=== PATIENT | female | born 1945 | race Caucasian/White ===

== ENCOUNTER → 2016-09-07 | Outpatient (CLI) | payer OTHER ==
--- NOTE | 2016-09-07 14:46 | MAMMOGRAPHY REPORT ---
BILATERAL DIGITAL DIAGNOSTIC MAMMOGRAM TOMOSYNTHESIS WITH CAD: 09/07/2016 CLINICAL HISTORY: 1 year diagnostic follow-up of clustered microcalcifications in the right upper ou ter quadrant. Annual bilateral screening exam. TECHNIQUE: Bilateral CC and MLO 2-D digital and tomosynthesis images, spot magnification right CC a nd ML views were obtained. Current study was also evaluated with a Computer Aided Detection (CAD) s ystem. COMPARISON: Comparison is made to exams dated: 03/09/2016 mammogram, 08/07/2015 mammogram, 07/29/2015 mammogram, 07/17/2014 mammogram, 05/25/2013 mammogram, and 05/24/2012 mammogram - [facility]. BREAST COMPOSITION: There are scattered areas of fibroglandular density in both breasts. FINDINGS: There is a stable small, 3 mm cluster of punctate and amorphous microcalcifications in th e upper outer middle to posterior right breast, that appears similar based on the spot magnification views dating back to 08/07/2015. A few other round and punctate microcalcifications are seen more medially in the posterior aspect of the right breast on the spot magnification CC view. There are a lso benign coarse calcifications. No new suspicious mass, architectural distortion or cluster of nazanin rocalcifications is seen bilaterally. IMPRESSION: ACR-BI-RADS CATEGORY 3: PROBABLY BENIGN The small cluster of punctate and amorphous microcalcifications in the right upper outer quadrant ap pears stable for one year based on spot magnification views. Longer stability is needed and another 12 month follow-up diagnostic mammogram including spot magnification views is recommended. Annual bilateral mammography will also be due at that time. These results and recommendations were discussed with the patient at the time of the exam. Approximately 10% of breast cancers are not detected with mammography. A negative mammographic repor t should not delay biopsy if a clinically suggestive mass is present. Velma Houser M.D. ay/:09/07/2016 12:21:44 Front Elevator Operator: Bharti LOUIS)(M), [facility] letter sent: Follow Up Recommended 3 BI-RADS Code: ACR-BI-RADS Category 3: Probably Benign
== END | disposition home or self-care (01) ==
LOC: C.MAMM 08:46
PROVIDERS: ATTEND Physician Assistant
DX: R92.0 Mammographic microcalcification found on diagnostic imaging of breast (principal)

== ENCOUNTER → 2017-09-08 | Outpatient (CLI) | payer OTHER ==
--- NOTE | 2017-09-08 15:25 | MAMMOGRAPHY REPORT ---
BILATERAL DIGITAL DIAGNOSTIC MAMMOGRAM TOMOSYNTHESIS WITH CAD: 09/08/2017 CLINICAL HISTORY: 12 month follow-up of right breast calcifications. Due for routine mammography of the left breast. The patient reports no palpable lumps or other new complaints. TECHNIQUE: Breast tomosynthesis in addition to standard 2D mammography was performed. Current study was also evaluated with a Computer Aided Detection (CAD) system. Bilateral CC and MLO 2D and tomosyn thesis images and spot magnification right cc and ML views were obtained. COMPARISON: Comparison is made to exams dated: 09/07/2016 mammogram, 03/09/2016 mammogram, 08/07/2015 mammogram, 07/29/2015 mammogram, 07/17/2014 mammogram, and 05/25/2013 mammogram - [facility]. BREAST COMPOSITION: There are scattered areas of fibroglandular density in both breasts. FINDINGS: Again noted is a small 3 mm cluster of punctate benign-appearing calcifications in the righ t upper outer quadrant. The calcifications are stable on spot magnification views dating back to at least July 2015, and are considered benign given the morphology and stability. The remainder of bot h breasts are stable compared to prior exams, without suspicious masses, calcifications, or areas of architectural distortion noted. Other scattered bilateral benign-appearing calcifications are not si gnificantly changed. IMPRESSION: ACR BI-RADS CATEGORY 2: BENIGN Small cluster of calcifications in the right upper outer quadrant is stable dating back to the July 2015 exam and is considered benign given long-term stability. There is no mammographic evidence of m alignancy in either breast. A 1 year screening mammogram is recommended. The patient has been verbally notified of the results. Approximately 10% of breast cancers are not detected with mammography. A negative mammographic report should not delay biopsy if a clinically suggestive mass is present. Elise Mullins M.D. /:09/08/2017 12:57:57 Box Sealing Machine Feeder: Destiny COPELAND(Kevin)(Ailyn), [facility] letter sent: Normal 1/2 BI-RADS Code: ACR BI-RADS Category 2: Benign
== END | disposition home or self-care (01) ==
LOC: C.MAMM 12:18
PROVIDERS: ATTEND Physician Assistant
DX: R92.1 Mammographic calcification found on diagnostic imaging of breast (principal)